=== PATIENT | female | born 1995 | race Two or more races ===

== ENCOUNTER → 2020-05-28 | Outpatient (CLI) | payer SELFPAY ==
--- NOTE | 2020-05-28 15:41 | RADIOLOGY REPORT (SQ) ---
EXAM DESCRIPTION: U/S [id number] TRNABD 1GES W/ODOP IMAGES COMPLETED DATE/TIME: 05/28/2020 3:21 pm REASON FOR STUDY: ENCOUNTER FOR SUPERVISION OF NORMAL PREG Z34.01 ENCNTR FOR SUPRVSN OF NORMAL FIRS T PREG, FIRST TRIMES COMPARISON: None. TECHNIQUE: Transvaginal and transabdominal static and realtime grayscale images acquired of the pelv is. Additional selected spectral and color Doppler images recorded. All images stored on PACs. [facility]: Not available. CLINICAL DATES: LEYDA: 01/07/2021 EGA: 8 weeks 0 days LIMITATIONS: None. FINDINGS: FETUS: Single Living intrauterine . ULTRASOUND EGA: 6 weeks 6 days ULTRASOUND LEYDA: 01/15/2021 GESTATIONAL SAC: Visualized. YOLK SAC: Visualized. EFW: Not applicable less than 20 weeks. CRL: 0.88 cm FHR: 82 beats per minute. SURVEY: Too early to assess. AMNIOTIC FLUID: Adequate amount. PLACENTA: Not yet developed due to early gestation. SUBCHORIONIC BLEED: Question of small bleed along the gestational sac measures 7 x 5 x 4 mm. SIZE OF BLEED: See above. UTERUS: Arcuate uterus is suggested. The uterus measures 9.3 x 6.7 x 5.3 cm. Gestational sac is vi sualized in the left uterine horn. Question of a 1.2 x 2.1 x 0.7 cm bleed in the lower uterine segme nt CERVICAL LENGTH: Closed. RIGHT ADNEXA: The right ovary measures 3.1 x 2.3 x 2.1 cm. Normal ovary with normal vascular flow. No adnexal free fluid. No adnexal masses. LEFT ADNEXA: The left ovary measures 2.5 x 1.7 x 1.5 cm. Normal ovary with normal vascular flow. No adnexal free fluid. No adnexal masses. FREE FLUID: None. OTHER: No other significant finding. IMPRESSION: 1. LIVING INTRAUTERINE . Question of an arcuate uterus with the gestational sa c visualized in the left uterine horn. EGA: 6 weeks 6 days Small subchorionic bleed suggested along the gestational sac. Small bleed suggested in the lower amirah rine segment. Trimester of : First trimester - 0 to 13 weeks. TECHNICAL DOCUMENTATION: JOB ID: [id number] 2011 [employer]- All Rights Reserved rev-10/08 Reading location - IP/workstation name: [email or web address]
== END ==
LOC: RAD 14:50
PROVIDERS: ATTEND Midwife
DX: Z34.01 Encounter for supervision of normal first pregnancy, first trimester (principal); Z3A.01 Less than 8 weeks gestation of pregnancy
CPT/HCPCS: 76801

== ENCOUNTER → 2020-06-12 | Outpatient (CLI) | payer SELFPAY ==
--- NOTE | 2020-06-12 16:46 | RADIOLOGY REPORT (SQ) ---
EXAM DESCRIPTION: U/S [id number] TRNABD 1GES W/ODOP IMAGES COMPLETED DATE/TIME: 06/12/2020 3:45 pm REASON FOR STUDY: (Z34.01)ENCNTR FOR SUPRVSN OF NORMAL FIRST PREG, FIRST TRIMESTER Z34.01 ENCNTR FO R SUPRVSN OF NORMAL FIRST PREG, FIRST TRIMES COMPARISON: 05/28/2020 TECHNIQUE: Transvaginal and transabdominal static and realtime grayscale images acquired of the pelv is. Additional selected spectral and color Doppler images recorded. All images stored on PACs. bHCG: Not available. CLINICAL DATES: 9 weeks, 0 days LIMITATIONS: None. FINDINGS: FETUS: Single Living intrauterine . ULTRASOUND EGA: 7 weeks, 1 day ULTRASOUND LEYDA: 01/28/2021 EFW: Not applicable less than 20 weeks. CRL: 1.05 cm FHR: No heart motion demonstrated. SURVEY: No visualized anomalies. AMNIOTIC FLUID: Adequate amount. PLACENTA: Not yet developed due to early gestation. SUBCHORIONIC BLEED: Yes. SIZE OF BLEED: 1.1 x 0.8 x 0.9 cm UTERUS: No masses. No anomalies. CERVICAL LENGTH: 2.6 cm Closed. RIGHT ADNEXA: Normal ovary with normal vascular flow. No adnexal free fluid. No adnexal masses. LEFT ADNEXA: Normal ovary with normal vascular flow. No adnexal free fluid. No adnexal masses. FREE FLUID: None. OTHER: No other significant finding. IMPRESSION: Intrauterine gestation with size measuring 1 weeks, 6 days behind dates and no demonstra tay heart motion, consistent with 1st trimester loss. EGA 7 weeks, 1 day Trimester of : First trimester - 0 to 13 weeks. TECHNICAL DOCUMENTATION: JOB ID: [id number] 2010 [employer]- All Rights Reserved rev-10/08 Reading location - IP/workstation name: [email or web address]
== END ==
LOC: RAD 14:00
PROVIDERS: ATTEND Midwife
DX: Z34.01 Encounter for supervision of normal first pregnancy, first trimester (principal)
CPT/HCPCS: 76801